=== PATIENT | female | born 1960 | race Caucasian/White ===

== ENCOUNTER 2019-03-24 20:04 | Emergency (ER) | payer MEDICARE, MEDICAID ==
[~2019-03-24] VITALS: Ht 170.2 cm; Wt 123.0 kg
[~2019-03-24 20:04] MED LIST: BUSP-29 PO; CHOL100044 PO; COR12 PO; FERR325T30 PO; GLIP5TAB3 PO; LEVO500T2 PO; LISI2.5T47 PO; METF-414 PO; SITA100T11 PO; synthroid PO
[2019-03-24] MEDS ORDERED: TRANEXAMIC ACID 1,000 MG/10 ML IV ONE (20:45)
[2019-03-24] MEDS ORDERED: MORPHINE SULFATE 4 MG/ML CPJ (NOT FOR IM USE) IV ONE (21:00)
[2019-03-24] MEDS ORDERED: ONDANSETRON HCL 4MG/2ML INJ IV ONE (21:00)
[2019-03-24 21:44] LABS: CHLORIDE 101 mEq/L (98-107)
[2019-03-24 21:45] LABS: PARTIAL THROMBOPLASTIN TIME 27.7 sec (23.4-31.0); PROTHROMBIN TIME 10.5 sec (9.6-11.0)
[2019-03-24 21:46] LABS: BASOPHILS % 0.7 % (0.0-2.0); EOSINOPHILS % 2.1 % (0.0-5.0); LYMPHOCYTES % 21.5 % (20.0-50.0); MEAN CORPUSCULAR HEMOGLOBIN 29.5 pg (28.0-32.0); MEAN CORPUSCULAR VOLUME 88.4 fL (81.0-99.0); MEAN PLATELET VOLUME 9.6 fl (7.4-10.4); MONOCYTES % 5.6 % (2.0-8.0); NEUTROPHILS % 70.1 % (40.0-76.0); PLATELET 224 x1000/uL (130-400); RED BLOOD CELL COUNT 4.75 mill/uL (4.2-5.4); RED CELL DISTRIBUTION WIDTH 15.5 % (11.6-14.6)
[2019-03-24] MEDS ORDERED: INSULIN REGULAR (HUMULIN R) 300UNITS/3ML SUBCUT ONE (22:30)
[2019-03-24 23:55] VITALS: BP 141/72
== END 2019-03-25 | disposition home or self-care (01) ==
LOC: ER 20:04
DX: R04.0 Epistaxis (principal); E11.65 Type 2 diabetes mellitus with hyperglycemia; J45.909 Unspecified asthma, uncomplicated; I11.0 Hypertensive heart disease with heart failure; I50.9 Heart failure, unspecified; E03.9 Hypothyroidism, unspecified; Z90.49 Acquired absence of other specified parts of digestive tract; Z95.0 Presence of cardiac pacemaker; Z79.84 Long term (current) use of oral hypoglycemic drugs; Z79.899 Other long term (current) drug therapy
CPT/HCPCS: 36415; 80053; 82962; 83880; 84484; 85025; 85610; 85730; 86850; 86900; 86901; 96372; 96374; 96375; 99283; J1815; J2270; J2405

== ENCOUNTER 2019-03-27 08:53 | Emergency (ER) | payer MEDICARE, MEDICAID ==
[~2019-03-27] VITALS: Ht 170.2 cm; Wt 122.0 kg
[2019-03-27] MEDS ORDERED: OXYMETAZOLINE HCL NASAL SPRAY 15ML LEFTNSTRL SCH (10:45)
[2019-03-27 11:21] VITALS: BP 135/82
== END 2019-03-27 11:27 | disposition home or self-care (01) ==
LOC: ER 08:53
DX: R04.0 Epistaxis (principal)
CPT/HCPCS: 99283

== ENCOUNTER → 2019-04-15 | Outpatient (CLI) | payer MEDICARE, MEDICAID | END | disposition home or self-care (01) | LOC: PF 14:20 | DX: I11.9 Hypertensive heart disease without heart failure (principal); E11.9 Type 2 diabetes mellitus without complications; E03.9 Hypothyroidism, unspecified; J44.9 Chronic obstructive pulmonary disease, unspecified; Z95.0 Presence of cardiac pacemaker | CPT/HCPCS: 71046 ==

== ENCOUNTER → 2020-09-10 | Outpatient (CLI) | payer MEDICARE, MEDICAID ==
[~2020-09-10] MED LIST changes: -BUSP-29 PO; +BUSP10TA4 PO
== END | disposition home or self-care (01) ==
LOC: LAB 07:16
PROVIDERS: ATTEND Internal Medicine Clinical Cardiac Electrophysiology
DX: Z20.822 Contact with and (suspected) exposure to COVID-19 (principal); I50.22 Chronic systolic (congestive) heart failure
CPT/HCPCS: 87426